=== PATIENT | female | born 1975 | race African-American/Black ===

== ENCOUNTER 2016-10-19 23:30 | Emergency (ER) | payer OTHER ==
[~2016-10-19 23:30] MED LIST: ACCU-CHEK D-TR1 CAR1; ACTOS PO; ACTOS15 MG PO; AMITRIPTYLINE H25 MG; AMOXICILLIN PO; APIDRA100 U/ML SQ; ASPIRIN81 M1 PO; ASPIRIN81 M2 PO; ATORVASTATIN CA10 MG PO; AUGMENTIN PO; BENADRYL PO; BENZONATATE PO; BLOOD PRESSURE MED; COREG; COREG3.125 MG PO; COUGH SYRU100 MG/5 M PO; DEPO-PROVE150 MG/1 M; DIABETES MED; DICLOFENAC PO; FERROUS SULFATE PO; FLEXERIL PO; FOLIC ACID; GLUCOPHAGE XR500 MG PO; GLUCOPHAGE500 M1 PO; GLUCOTROL PO; GLYNASE PO; HCTZ PO; HUMALOG100 U/M1; HUMALOG100 UNIT/2; HYDROCHLOROTHIA25 MG PO; HYDROCODON-ACE1 EAC5 PO; LANTUS100 U/ML SUBQ; LEVEMIR100 U/ML SQ; MAGIC MOUTHWASH; METFORMIN HCL1000 M1 PO; METFORMIN HCL500 M1; METFORMIN HCL500 M1 PO; MOUTHWASH180 ML; MULTI VITAMIN1 EACH; NEURONTIN800 MG PO; NORMODYNE PO; PHENERGAN DM1 ML PO; PREDNISONE PO; PREDNISONE50 MG PO; PRINIVIL10 MG PO; PROCARDIA10 MG PO; ROBAXIN 750750 MG PO; TOPROL XL PO; UNKNOWN ANTIBIOTIC; VASOTEC; VICODIN 5/500 T1 TAB PO; ZOFRANODT PO
[2016-10-19] MEDS ORDERED: GLUCOTROL XL (23:56)
[2016-10-19] MEDS ORDERED: LASIX PO (23:56)
[2016-10-19] MEDS ORDERED: ALDACTONE (23:56)
[2016-10-19] MEDS ORDERED: LEVOTHYROXINE100 MCG PO (23:57)
[2016-10-20 01:19] LABS: URINE SOURCE CLEAN CATCH
[2016-10-20 01:21] LABS: URINE APPEARANCE CLEAR; URINE BILIRUBIN NEG (NEG); URINE BLOOD 3+ (NEG); URINE COLOR YELLOW; URINE GLUCOSE 300 MG/DL (NORM); URINE KETONE NEG (NEG); URINE LEUKOCYTE ESTERASE NEG (NEG); URINE NITRATE NEG (NEG); URINE PROTEIN NEG (NEG)
[2016-10-20 01:25] LABS: BASOPHIL# 0.1 X10e3 (0-0.3); DIFF IND NO; EOSINOPHIL# 0.2 X10e3 (0-0.7); EOSINOPHIL% 2.2 % (0.0-7.0); HEMATOCRIT 37.5 % (35.0-45.0); HEMOGLOBIN 11.5 gm/dL (12.0-16.0); LYMPHOCYTE# 2.6 X10e3 (1.0-3.5); LYMPHOCYTE% 29.2 % (17.0-45.0); MEAN CELL VOLUME 74.3 FL (83-96); MEAN CORPUSCULAR HEMOGLOBIN 22.8 PG (28-34); MEAN CORPUSCULAR HGB CONC 30.7 g/dL (30-36); MEAN PLATELET VOLUME 9.8 FL (6.5-11.5); MONOCYTE# 0.8 X10e3 (0-1.0); MONOCYTE% 9.6 % (3.0-12.0); NEUTROPHIL# 5.1 X10e3 (1.5-7.1); PLATELET COUNT 256 X10e3 (140-420); RED BLOOD COUNT 5.05 X10e (3.90-5.30); RED CELL DISTRIBUTION WIDTH 18.3 % (11.0-15.5); WHITE BLOOD COUNT 8.8 X10e3 (4.0-10.5)
[2016-10-20 01:28] LABS: MICRO INDICATED? YES
[2016-10-20 01:31] LABS: CULTURE INDICATED? NO; URINE BACTERIA NEG (NEG); URINE RBC 100-200 /[HPF] (0-2)
[2016-10-20 01:32] LABS: URINE SQUAMOUS EPITHELIAL CELL OCCAS /[HPF]
[2016-10-20 01:39] LABS: CREATININE SERUM 0.7 mg/dL (0.6-1.4); GLOM FILT RATE Estimated 123.9 mL/min (>60); POTASSIUM 3.3 mmol/L (3.5-5.1)
[2016-10-21 20:38] LABS: CHLAMYDIA TRACH Not Detected (Not Detected); N GONOR Not Detected (Not Detected)
== END 2016-10-20 02:17 | disposition home or self-care (01) ==
LOC: SED 23:30
PROVIDERS: Emergency Medicine
DX: N76.0 Acute vaginitis (principal); E11.9 Type 2 diabetes mellitus without complications; I50.9 Heart failure, unspecified; I25.10 Atherosclerotic heart disease of native coronary artery without angina pectoris; Z79.82 Long term (current) use of aspirin; Z79.4 Long term (current) use of insulin; Z79.899 Other long term (current) drug therapy
CPT/HCPCS: 36415; 80048; 81003; 84703; 85025; 87491; 87591; 87808; 87905; 99284

== ENCOUNTER 2016-11-16 01:48 | Emergency (ER) | payer OTHER ==
--- NOTE | ~2016-11-16 | CR72 ---
[facility] A Service of [facility] & [facility] RADIOLOGY TEXT RESULTS PATIENT: BIANCA PAULINO LOCATION: SED : [birth year] UNIT #: [id number] AGE: [address]: Jayden Price MD SEX: F ORDER DR: [id number] [place] [id number] MR#: [id number] Acc #: [id number] NAME: BIANCA PAULINO : 1975 SEX: F STUDY DATE/TIME: 11/16/2016 2:53 UNIT: SED ROOM: STUDY DESCRIPTION: CR Chest Single View Portable Attending Physician: Jayden Price M.D. Ordering Physician: Jayden Price M.D. Primary Care Physician: Marcos Mcmahon M.D. MEDICAL IMAGING REPORT This report is preliminary unless electronic signature is present. EXAM AP portable chest 11/16/2016 HISTORY 41-year-old female in the ED complaining of cough, congestion, shortness of air and chest pain beginning earlier today. TECHNIQUE AP portable upright chest x-ray. FINDINGS Patchy, moderately dense airspace infiltrates are present in both lung bases, new since the prior exam. Mid and upper lungs are clear. Heart size and pulmonary vascularity are normal. IMPRESSION Moderately dense, patchy bibasilar pulmonary infiltrates. Dictated by... Arron Joseph M.D. THIS IS AN ELECTRONICALLY VERIFIED REPORT Arron oJseph M.D. at 11/16/2016 5:53 AM KAMERONW/michaelr TD: 11/16/2016 04:01 JOB #: [id number] MEDICAL IMAGING REPORT Page 1 of 1
--- NOTE | ~2016-11-16 | EKG ---
PATIENT: BIANCA PAULINO UNIT #: [id number] Ventricular Rate: 96 BPM Atrial Rate: 96 BPM P-R Interval: 214 ms QRS Duration: 106 ms Q-T Interval: 356 ms QTC Calculation(Bezet): 449 ms P [place]: 56 degrees Calculated R [place]: 29 degrees Calculated T [place]: 119 degrees Diagnosis Line: Sinus rhythm with 1st degree A-V block Diagnosis Line: Inferior infarct , possibly acute Diagnosis Line: Anterior infarct (cited on or before 10-FEB-2012) Diagnosis Line: T wave abnormality, consider lateral ischemia Diagnosis Line: * ACUTE NV Diagnosis Line: Abnormal ECG Diagnosis Line: When compared with ECG of 19-JUL-2015 07:34, Diagnosis Line: QRS duration has increased Diagnosis Line: Confirmed by FANG RICK MD ([id number]) on 11/20/2016 Diagnosis Line: 11:57:12 AM INTERPRETING MD: MERLINE FITZPATRICK
[~2016-11-16 01:48] MED LIST changes: +ALDACTONE; +GLUCOTROL XL; +LASIX PO; +LEVOTHYROXINE100 MCG PO
[2016-11-16] MEDS ORDERED: PERCOCET PO (01:51)
[2016-11-16 02:21] LABS: BASOPHIL# 0.1 X10e3 (0-0.3); BASOPHIL% 0.6 % (0-2.5); EOSINOPHIL# 0.3 X10e3 (0-0.7); EOSINOPHIL% 2.6 % (0.0-7.0); HEMATOCRIT 35.6 % (35.0-45.0); HEMOGLOBIN 11.1 gm/dL (12.0-16.0); LYMPHOCYTE# 2.1 X10e3 (1.0-3.5); LYMPHOCYTE% 21.4 % (17.0-45.0); MEAN CELL VOLUME 75.5 FL (83-96); MEAN CORPUSCULAR HEMOGLOBIN 23.5 PG (28-34); MEAN CORPUSCULAR HGB CONC 31.2 g/dL (30-36); MEAN PLATELET VOLUME 9.6 FL (6.5-11.5); MONOCYTE# 0.8 X10e3 (0-1.0); MONOCYTE% 8.5 % (3.0-12.0); NEUTROPHIL# 6.6 X10e3 (1.5-7.1); NEUTROPHIL% 66.9 % (40-75); PLATELET COUNT 257 X10e3 (140-420); RED BLOOD COUNT 4.72 X10e (3.90-5.30); RED CELL DISTRIBUTION WIDTH 19.2 % (11.0-15.5); WHITE BLOOD COUNT 9.9 X10e3 (4.0-10.5)
[2016-11-16 02:26] LABS: DIFF IND NO
[2016-11-16 02:34] LABS: POC - CKMB 1.7 ng/mL (0.0-7.9); POC - TROPONIN 0.05 ng/mL (<=0.05)
[2016-11-16 02:35] LABS: ALBUMIN SERUM 2.9 g/dL (3.5-5.0); BILIRUBIN,TOTAL 0.3 mg/dL (0.2-2.0); BUN/CREATININE RATIO 14.44; CALCIUM SERUM 8.8 mg/dL (8.4-10.2); CREATININE SERUM 0.9 mg/dL (0.6-1.4); GLOM FILT RATE Estimated 91.5 mL/min (>60); POTASSIUM 3.9 mmol/L (3.5-5.1); PROTEIN TOTAL SERUM 5.9 g/dL (6.0-8.3)
[2016-11-16 04:12] LABS: POC - CKMB 1.4 ng/mL (0.0-7.9)
[2016-11-16 04:13] LABS: POC - TROPONIN <0.05 ng/mL (<=0.05)
== END 2016-11-16 04:56 | disposition home or self-care (01) ==
LOC: SED 01:48
PROVIDERS: Emergency Medicine
DX: J18.9 Pneumonia, unspecified organism (principal); Z79.82 Long term (current) use of aspirin; Z79.4 Long term (current) use of insulin; Z79.899 Other long term (current) drug therapy
CPT/HCPCS: 36415; 71010; 80053; 82553; 82947; 83880; 84484; 85025; 93005; 96361; 96374; 99284

== ENCOUNTER 2016-11-25 18:34 | Inpatient (IN) | payer OTHER ==
--- NOTE | ~2016-11-25 | EKG ---
PATIENT: BIANCA PAULINO UNIT #: [id number] Ventricular Rate: 104 BPM Atrial Rate: 104 BPM P-R Interval: 202 ms QRS Duration: 92 ms Q-T Interval: 326 ms QTC Calculation(Bezet): 428 ms P [place]: 50 degrees Calculated R [place]: 9 degrees Calculated T [place]: 100 degrees Diagnosis Line: Sinus tachycardia Diagnosis Line: Inferior infarct (cited on or before 21-APR-2015) Diagnosis Line: T wave abnormality, consider lateral ischemia Diagnosis Line: Abnormal ECG Diagnosis Line: When compared with ECG of 28-NOV-2016 07:01, Diagnosis Line: (unconfirmed) Diagnosis Line: Questionable change in initial forces of Anterior Diagnosis Line: leads Diagnosis Line: Confirmed by FANG RICK MD ([id number]) on 11/30/2016 Diagnosis Line: 4:10:41 PM INTERPRETING MD: MERLINE FITZPATRICK
--- NOTE | ~2016-11-25 | EKG ---
PATIENT: TOMAS PAULINO UNIT #: [id number] Ventricular Rate: 106 BPM Atrial Rate: 106 BPM P-R Interval: 220 ms QRS Duration: 76 ms Q-T Interval: 320 ms QTC Calculation(Bezet): 425 ms P [place]: 70 degrees Calculated R [place]: 30 degrees Calculated T [place]: 103 degrees Diagnosis Line: Sinus tachycardia with 1st degree A-V block Diagnosis Line: Inferior infarct (cited on or before 21-APR-2015) Diagnosis Line: T wave abnormality, consider lateral ischemia Diagnosis Line: Abnormal ECG Diagnosis Line: When compared with ECG of 03-DEC-2016 05:40, Diagnosis Line: No significant change was found Diagnosis Line: Confirmed by LUCY CHAPMAN MD ([id number]) on Diagnosis Line: 12/05/2016 9:52:49 PM INTERPRETING MD: YVON
--- NOTE | ~2016-11-25 | CO ---
Unit #: [id number] #: [id number] Patient: BIANCA PAULINO [id number] [address] [place], [place] [address] [id number] I MR#: [id number] NAME: BIANCA PAULINO ROOM: 562 Age: 41 Sex: F Admission Date: 11/26/2016 : 1975 Attending Physician: Jackeline Reilly M.D. Primary Care Physician: Marcos Mcmahon M.D. Consultation Date: 11/27/2016 CONSULTATION REPORT REASON FOR CONSULTATION Elevated triglycerides and history of coronary artery disease. HISTORY OF PRESENT ILLNESS This is a pleasant 41-year-old female with a past medical history of coronary artery disease, status post PCI and stents in 2015 at [facility] per Dr. Gonzales. Apparently, the patient was evaluated by Surgery and was deemed not to be a surgical candidate. The patient also one point had severe cardiomyopathy with an EF of 15% and tells me she was on the transplant list at one time, but has since been removed since her ejection fraction has improved. She also [facility] and states her next appointment is the end of November. The patient states last week she went to the hospital at [facility] because she was not feeling well. She had been complaining of shortness of breath and cough as well as some chest pain for about a week. She states she was evaluated at [facility] and diagnosed with pneumonia. They sent her out with doxycycline. She states she took this antibiotic for approximately 7 days and still was not feeling much better. She states she stayed home a couple of days to try to ride it out, but things did not improve. Finally came into the emergency room, still with complaints of shortness of breath and dyspnea on exertion as well as some substernal chest pressure, lower extremity swelling, and reports of PND. The patient was diagnosed here with acute respiratory failure and pneumonia. Her BNP was noted to be normal. She was started on Rocephin and Zithromax and was admitted. She denies any complaints of palpitations, syncope, or near syncope. EKG shows normal sinus rhythm, old inferior SD, T-wave inversion V4 through V6 which suggestive of lateral wall ischemia. Point of care troponins have been indeterminate. PAST MEDICAL HISTORY 1. Hypertension. Known coronary artery disease, status post cardiac catheterization in 06/2015, which at that time showed severe coronary artery disease. Severe hypokinesis of the left ventricle, EF of 15%. 2. Proximal with LAD descending 99% stenosis, significant stenosis of the first and second diagonal branches of the LAD. 3. Subtotal stenosis of proximal circ 90%, mid circ 90% stenosis origin of the first marginal branch of the circ and 90% stenosis body of the second marginal branch of the circumflex. 4. Stenosis 100% of the mid right coronary artery. The patient was evaluated by Surgical team and was deemed not a candidate for bypass grafting. Therefore, underwent stent placement per Dr. Gonzales in 02/2016 at [facility]. Those records are currently unavailable. 5. 2D echocardiogram performed in 02/2016 showed an LVEF of 60% to 65%. 6. Diabetes mellitus type 2 with poor control. Unit #: [id number] #: [id number] Patient: BIANCA PAULINO 7. Hypertension. 8. Hyperlipidemia. 9. Clotting disorder. 10. Hypothyroidism. 11. Elevated triglycerides. 12. History of systolic CHF, EF is much improved now. PAST SURGICAL HISTORY History of , PCI with stents. HOME MEDICATIONS Aspirin 81 mg p.o. daily, Prinivil 10 mg p.o. daily, Neurontin 800 mg p.o. q.i.d., carvedilol 3.125 p.o. daily, Plavix 75 mg p.o. daily, Synthroid 25 mcg p.o. q.a.m., Lasix 40 mg p.o. b.i.d., nitroglycerin sublingual 0.4 sublingual as needed p.r.n. pain., Glucotrol 5 mg p.o. b.i.d., BuSpar 15 mg p.o. b.i.d., Percocet 1 tab 5/325 p.o. q.i.d. p.r.n., Aldactone 25 mg p.o. daily. ALLERGIES No known drug allergies. SOCIAL HISTORY The patient lives with her kids. She states she has not been released to work yet. She is a nonsmoker. Denies any illicit drugs or alcohol. FAMILY HISTORY Aunt with an SD, otherwise unremarkable. She did have a baby, who in utero with hypoplastic heart disease. PHYSICAL EXAMINATION VITAL SIGNS: Temperature 98, respiratory rate 18 to 20, heart rate 90 to 110s, blood pressure 104/72 to 123/83, also with some borderline low blood pressure is 95/50s. GENERAL: This is a pleasant 41-year-old female, in no acute distress. HEENT: Head is atraumatic and normocephalic. Pupils are equal and round. Extraocular muscles are intact. Mucous membranes are moist. NECK: Supple. No masses. No thyromegaly. No JVD. LUNGS: Clear anteriorly, diminished in the bases. HEART: S1 and S2. No murmurs, gallops, or rubs. ABDOMEN: Obese, soft, nontender, nondistended. No hepatomegaly. No masses. EXTREMITIES: No clubbing, cyanosis, or edema. NEUROLOGIC: She is awake, alert, and oriented. She moves all extremities equally. She follows commands without difficulty. DIAGNOSTIC STUDIES LABORATORY RESULTS: Sodium 136, potassium 4.1, chloride 101, CO2 of 26, BUN 12, creatinine 0.6, glucose is 201. Troponin 0.06 and 0.05. Hemoglobin 11.4, hematocrit 37.1, WBCs 10.3, platelet count 298. BNP was 58. Total cholesterol 222, triglycerides 790, LDL less than 130, HDL 27. D-dimer was less than 200. IMAGING STUDIES: Interval increase in the bibasilar infiltrates compared with 11/16/2016, characteristic of worsening bilateral pneumonia. CARDIOVASCULAR STUDIES: EKG; normal sinus rhythm, old inferior SD. T-wave inversion in V4 through V6 suggestive of lateral wall ischemia. Unit #: [id number] #: [id number] Patient: BIANCA PAULINO IMPRESSION 1. Acute respiratory failure. 2. Bibasilar pneumonia. 3. Ischemic cardiac cardiomyopathy. 4. Compensated congestive heart failure, ejection fraction now of 45% to 50%. 5. Angina pectoralis. 6. Dyslipidemia with elevated triglycerides of 790. 7. Known coronary artery disease with severe 3-vessel disease, deemed not a surgical candidate. History of stents per Dr. Gonzales in 2016 at [facility]. That report is currently unavailable. 8. Hypertension. 9. Hyperlipidemia. 10. Poorly-controlled diabetes mellitus with A1c of 13.8. PLAN The patient does have borderline hypotension and is on beta-rios therapy. Since there was a discrepancy in her EF, we will repeat 2D echocardiogram to assess LV systolic function. We will also decrease some of her heart failure medications and assess blood pressure tolerance. We will be decreasing her Prinivil to 2.5 mg p.o. daily and decreasing her Aldactone to 12.5 mg p.o. daily. She will also have a BMP and troponin tomorrow in the morning. She should continue to get her beta-rios as long as her systolic blood pressure is at least 90. Due the fact the patient does have extremely elevated triglycerides, we will place her on Lopid p.o. b.i.d. We will check a PA and lateral chest x-ray. I have discussed her EKG findings with Dr. Presley and he will evaluate her later today. If the patient continues to have symptoms of chest discomfort, she may need a repeat cardiac catheterization later. We will continue to trend cardiac enzymes and assess and monitor her chest pain. It is also important that the patient get her blood sugars under control. It appears Endocrinology has also been consulted to see as the patient has an extremely elevated hemoglobin A1c of 13.8. It was discussed with the patient the importance of lifestyle modification including diet, exercise, and weight loss as well as avoiding sugars and white carbohydrates. She has extremely increased risk for pancreatitis. Thank you for asking us to see this pleasant patient. We will continue to follow along with you. Dictated by... Ac Purcell/quentin TD: 11/29/2016 05:48 JOB #: [id number] Unit #: [id number] #: [id number] Patient: BIANCA PAULINO CONSULTATION REPORT Page 1 of 1 X Leigh Andrew APRN CONSULTATION REPORT
--- NOTE | ~2016-11-25 | CO ---
Unit #: [id number] #: [id number] Patient: BIANCA PAULINO [id number] [address] [address] [id number] I MR#: [id number] NAME: BIANCA PAULINO. ROOM: 562 Age: 41 Sex: F Admission Date: 11/26/2016 : 1975 Attending Physician: Jackeline Reilly M.D. Primary Care Physician: Marcos Mcmahon M.D. Consultation Date: 11/27/2016 CONSULTATION REPORT REASON FOR CONSULTATION Shortness of breath. HISTORY OF PRESENT ILLNESS This is a very pleasant 41-year-old female with a past medical history significant for severe coronary artery disease, complicated with cardiomyopathy. The patient presented to the emergency room with shortness of breath for the last 10 days. The patient stated that she went to the [facility] emergency room on 11/16/2016, where she had a chest x-ray and was told that she had pneumonia. She was placed on doxycycline with no improvement. The patient continued to feel short of breath and she had some chills. She denied any overt fever. No nausea, vomiting or diarrhea. She lives at home with her . She never smoked, but she has a well-known severe congestive heart failure and she is supposedly following with the congestive heart failure clinic. PAST MEDICAL HISTORY 1. Hypertension. 2. Coronary artery disease. 3. Cardiomyopathy. 4. Diabetes. PAST SURGICAL HISTORY 1. PPI. 2. . SOCIAL HISTORY The patient denies any history of alcohol, smoking or drug abuse. FAMILY HISTORY Unremarkable. ALLERGIES No known drug allergies. HOME MEDICATIONS 1. Aspirin. 2. Plavix. 3. Lisinopril. 4. Neurontin. 5. Coreg. 6. Synthroid. Unit #: [id number] #: [id number] Patient: BIANCA PAULINO 7. Lasix. 8. Glucotrol. 9. BuSpar. 10. Percocet. 11. Aldactone. REVIEW OF SYSTEMS Twelve point review of systems was obtained and was negative except for that mentioned in history of present illness. PHYSICAL EXAMINATION GENERAL: The patient is in no acute distress. VITALS: Blood pressure 94/62, respiratory rate 23, O2 saturations 93%. HEENT: Atraumatic, normocephalic. Extraocular muscles intact. NECK: Supple. No jugular venous distension. No lymphadenopathy. CHEST: Mild fine rhonchi at the bases. HEART: S1 and S2. No murmur, gallop or rub. ABDOMEN: Soft, nontender. Bowel sounds positive. No hepatosplenomegaly. EXTREMITIES: No edema or cyanosis. SKIN: No rashes. NEUROLOGIC: Awake, alert and oriented times three. No focal motor/sensory deficits. SKIN: No rashes. DIAGNOSTIC STUDIES IMAGING: Chest x-ray is consistent with bilateral lower lobe infiltrate. LABORATORY: Creatinine 0.6, sodium 136, white blood cell count 12.6, hemoglobin 12.3. ASSESSMENT 1. Acute hypoxic respiratory failure. 2. Community acquired pneumonia. 3. Severe cardiomyopathy. 4. Hypertension. 5. Coronary artery disease. PLAN 1. Will obtain lactic acid due to low blood pressure. 2. Will continue the patient on mucolytic, bronchodilator. 3. Rocephin and azithromycin. 4. Will follow blood culture. 5. DVT prophylaxis. I would like to thank Dr. Price for allowing me to be part of this patient's care. Dictated by... Marcy David M.D. EA/sangeetha TD: 11/27/2016 11:00 JOB #: [id number] Unit #: [id number] #: [id number] Patient: BIANCA PAULINO CONSULTATION REPORT Page 1 of 1 X MARCY NEW MD CONSULTATION REPORT
--- NOTE | ~2016-11-25 | EKG ---
PATIENT: TOMAS PAULINO UNIT #: [id number] Ventricular Rate: 98 BPM Atrial Rate: 98 BPM P-R Interval: 220 ms QRS Duration: 92 ms Q-T Interval: 352 ms QTC Calculation(Bezet): 449 ms P [place]: 63 degrees Calculated R [place]: -5 degrees Calculated T [place]: 103 degrees Diagnosis Line: Sinus rhythm with 1st degree A-V block Diagnosis Line: Inferior infarct (cited on or before 21-APR-2015) Diagnosis Line: Anterior infarct (cited on or before 10-FEB-2012) Diagnosis Line: T wave abnormality, consider lateral ischemia Diagnosis Line: Abnormal ECG Diagnosis Line: When compared with ECG of 02-DEC-2016 09:37, Diagnosis Line: (unconfirmed) Diagnosis Line: No significant change was found Diagnosis Line: Confirmed by DORINA SINGLETON MD ([id number]) on 12/02/2016 Diagnosis Line: 10:47:30 PM INTERPRETING MD: MANI FITZPATRICK
--- NOTE | ~2016-11-25 | EKG ---
PATIENT: BIANCA PAULINO UNIT #: [id number] Ventricular Rate: 106 BPM Atrial Rate: 106 BPM P-R Interval: 210 ms QRS Duration: 86 ms Q-T Interval: 328 ms QTC Calculation(Bezet): 435 ms P [place]: 73 degrees Calculated R [place]: 44 degrees Calculated T [place]: 109 degrees Diagnosis Line: Sinus tachycardia with 1st degree A-V block Diagnosis Line: Cannot rule out Inferior infarct (cited on or Diagnosis Line: before 21-APR-2015) Diagnosis Line: ST and T wave abnormality, consider lateral ischemia Diagnosis Line: Abnormal ECG Diagnosis Line: When compared with ECG of 30-NOV-2016 00:58, Diagnosis Line: No significant change was found Diagnosis Line: Confirmed by LUCY CHAPMAN MD ([id number]) on Diagnosis Line: 12/01/2016 11:28:36 PM INTERPRETING MD: YVON
--- NOTE | ~2016-11-25 | HP ---
Unit #: [id number] #: [id number] Patient: BIANCA TERRELL [id number] [facility] [address]. [place], [place] [address] [id number] I MR#: [id number] NAME: BIANCA TERRELL. ROOM: 562 Age: 41 Sex: F Admission Date: 11/26/2016 : 1975 Attending Physician: Jackeline Reilly M.D. Primary Care Physician: Marcos Mcmahon M.D. HISTORY AND PHYSICAL ADMISSION DIAGNOSES 1. Acute hypoxemic respiratory failure. 2. Pneumonia. 3. Elevated troponin. 4. Diabetes. HISTORY OF PRESENT ILLNESS Ms. Terrell is a 41-year-old female, patient of Dr. Mcmahon, with the history of severe coronary artery disease, status post PCI and stent from last year by Dr. Gonzales, along with the severe cardiomyopathy, presents to the emergency room with the complaints of increasing shortness of air, dyspnea along with some chills. Patient also reported some dizziness, nausea. Patient tells me she has been seen at the outlying ER last week with similar presentation and was diagnosed with "pneumonia" and was given some doxycycline for 7 days. Since then, patient reports her shortness of air getting worse and decided to come to the [facility] ER. In the ER, chest x-ray showed some bibasilar infiltrates and patient was diagnosed with pneumonia and started on Rocephin and Zithromax and admitted. She complains of on and off chest discomfort but currently chest pain-free. Denies any fever. Complains of chills. Denies any headache, but states that she gets dizzy if she stands for a long time. Denies any productive cough, denies any vomiting, diarrhea, or abdominal pain. Denies any syncopal episode. REVIEW OF SYSTEMS Twelve-point review of systems on this patient is basically negative except as above. PAST MEDICAL HISTORY Significant for: 1. History of hypertension. 2. CAD. 3. Cardiomyopathy. 4. Diabetes. PAST SURGICAL HISTORY Significant for: 1. PCI with stent. 2. . HOME MEDICATIONS Include: 1. Aspirin. 2. Plavix. Unit #: [id number] #: [id number] Patient: BIANCA TERRELL 3. Lisinopril. 4. Neurontin. 5. Coreg. 6. Synthroid. 7. Lasix. 8. Nitrostat. 9. Glucotrol. 10. BuSpar. 11. Percocet. 12. Aldactone. ALLERGIES No known drug allergies. SOCIAL HISTORY Denies any tobacco, alcohol, or illicit drugs. FAMILY HISTORY Unremarkable. PHYSICAL EXAMINATION VITAL SIGNS: BP 121/83, heart rate 102, respirations 18, temperature 98. GENERAL: The patient is a 41-year-old female in no acute distress. HEENT: Head is atraumatic. Pupils equal, round, reactive to light and accommodation. Extraocular muscles are intact. Oropharynx is clear. NECK: Supple. No mass, no JVD, no bruits. LUNGS: Diminished bilaterally. HEART: S1, S2. No murmurs. ABDOMEN: Soft, nontender, nondistended. LOWER EXTREMITIES: Without any cyanosis, clubbing, or edema. NEUROLOGIC: Patient grossly intact, no focal deficits. DIAGNOSTIC STUDIES LABORATORY: Chemistry significant for sodium of 131 and blood glucose 344. Set of cardiac enzymes showed the troponin of 0.09. White count 12.6, hemoglobin 12.3, hematocrit 39.2. IMAGING: Chest x-ray as above with bibasilar infiltrates. ASSESSMENT AND PLAN 1. Acute hypoxemic respiratory failure, most likely multifactorial secondary to pneumonia and cardiomyopathy. Continue DuoNeb. Pulmonary and cardiology to see. 2. Pneumonia. Continue Zithromax and Rocephin. 3. Elevated troponin. Trend troponin. Get Dr. Presley on board. 4. Diabetes. Was started on Levemir. Will check the hemoglobin A1c. Consider endocrinology evaluation. 5. GI and DVT prophylaxis. Continue Lovenox. Will put on some Pepcid. Dictated by Braden Price M.D. Unit #: [id number] #: [id number] Patient: BIANCA TERRELL OC/cs TD: 11/26/2016 20:26 JOB #: [id number] HISTORY AND PHYSICAL Page 1 of 1 X Braden Price MD HISTORY AND PHYSICAL
--- NOTE | ~2016-11-25 | CR63 ---
[facility] A Service of [facility] & [facility] RADIOLOGY TEXT RESULTS PATIENT: PAKO PILLAI LOCATION: [facility] 555-01 : [birth year] UNIT #: [id number] AGE: [address]: Jackeline Reilly MD SEX: F ORDER DR: [id number] [facility] [address] [place], [place] [address] [id number] I MR#: [id number] Acc #: [id number] NAME: PAKO PILLAI : 1975 SEX: F STUDY DATE/TIME: 12/07/2016 8:34 UNIT: [facility] ROOM: [facility] STUDY DESCRIPTION: CR Chest 2 View Attending Physician: Jackeline Reilly M.D. Ordering Physician: Jackeline Reilly M.D. Primary Care Physician: Marcos Mcmahon M.D. MEDICAL IMAGING REPORT This report is preliminary unless electronic signature is present EXAM PA and lateral chest INDICATION Followup pneumonia. Comparison with 11/28/2016 FINDINGS Overall no significant change in the bilateral lower lobe infiltrates. Heart size stable. Visualized osseous structures are unremarkable. IMPRESSION Stable bilateral lower lobe infiltrates. Dictated by... Franco Rdz M.D. THIS IS AN ELECTRONICALLY VERIFIED REPORT Franco Rdz M.D. at 12/08/2016 2:19 PM VERO/radha TD: 12/07/2016 22:49 JOB #: [id number] MEDICAL IMAGING REPORT Page 1 of 1 COPY
--- NOTE | ~2016-11-25 | CO ---
Unit #: [id number] #: [id number] Patient: BIANCA PAULINO [id number] [address] [address] [id number] I MR#: [id number] NAME: BIANCA PAULINO. ROOM: 562 Age: 41 Sex: F Admission Date: 11/26/2016 : 1975 Attending Physician: Jackeline Reilly M.D. Primary Care Physician: Marcos Mcmahon M.D. Consultation Date: 11/27/2016 CONSULTATION REPORT REASON FOR CONSULTATION Management of diabetes mellitus. HISTORY OF PRESENT ILLNESS This is a 43-year-old white female with history of multiple medical problems including type 2 diabetes mellitus and coronary artery disease, who presented to the emergency room for increasing shortness of breath for the last 10 days. She went to the emergency room on 11/16/2016, was treated outpatient with antibiotics with no improvement. She came to the hospital with worsening of shortness of air. Her blood sugar has been very high. I have been asked to see the patient for further management. PAST MEDICAL HISTORY Type 2 diabetes mellitus, poorly controlled; coronary artery disease; cardiomyopathy; congestive heart failure; hypertension. PAST SURGICAL HISTORY . SOCIAL HISTORY Denies any history of alcohol, smoking, or any illicit drugs. FAMILY HISTORY Noncontributory. ALLERGIES None. HOME MEDICATIONS Glucotrol 5 mg daily, Lantus 40 units daily, NovoLog 18 units each meal, aspirin daily, Plavix daily, lisinopril, Neurontin, Coreg, Lasix, Aldactone, Percocet. REVIEW OF SYSTEMS 12-point review of system was completed. Negative except as noted in HPI. PHYSICAL EXAMINATION GENERAL: She is comfortable, no acute respiratory distress. She is awake, alert, oriented to time, place, and person. VITAL SIGNS: Temperature 97.9, pulse 89, respirations 18, blood pressure 100/63. HEENT: EOMI. Pupils equally reactive to light. NECK: Supple. No thyromegaly noted. Unit #: [id number] #: [id number] Patient: BIANCA PAULINO CHEST: Decreased air entry with some rhonchi. CVS: Regular rhythm. S1, S2. ABDOMEN: Soft and obese. Bowel sounds positive. No tenderness, no guarding or rigidity noted. EXTREMITIES: No ulcers noted. No amputations. NEUROLOGIC: Nonfocal. Moving all extremities. SKIN: No rash. DIAGNOSTIC STUDIES LABORATORY RESULTS: Reviewed. A1c is 13.8. BUN and creatinine are normal. ASSESSMENT 1. Type 2 diabetes mellitus, poorly controlled due to poor compliance. 2. Cardiomyopathy with congestive heart failure. 3. Pneumonia. PLAN We will discuss with her, start the patient on consistent carb diet. Change Levemir to 30 units subcu b.i.d. or Glucotrol. Add NovoLog 15 units each meal. Accu-Cheks a.c. and h.s. Continue IV antibiotics. Continue to follow the patient for further management. Dictated by... Joseph Bazzi/quentin TD: 11/29/2016 05:12 JOB #: [id number] CONSULTATION REPORT Page 1 of 1 X Basil Jerry MD X CONSULTATION REPORT
--- NOTE | ~2016-11-25 | EKG ---
PATIENT: TOMAS PAULINO UNIT #: [id number] Ventricular Rate: 99 BPM Atrial Rate: 99 BPM P-R Interval: 226 ms QRS Duration: 80 ms Q-T Interval: 354 ms QTC Calculation(Bezet): 454 ms P [place]: 58 degrees Calculated R [place]: -2 degrees Calculated T [place]: 98 degrees Diagnosis Line: Sinus rhythm with 1st degree A-V block Diagnosis Line: Inferior infarct (cited on or before 21-APR-2015) Diagnosis Line: Anterior infarct (cited on or before 10-FEB-2012) Diagnosis Line: T wave abnormality, consider lateral ischemia Diagnosis Line: Abnormal ECG Diagnosis Line: When compared with ECG of 02-DEC-2016 13:04, Diagnosis Line: T wave inversion more evident in Lateral leads Diagnosis Line: Confirmed by DORINA SINGLETON MD ([id number]) on 12/04/2016 Diagnosis Line: 11:10:01 PM INTERPRETING MD: MANI FITZPATRICK
--- NOTE | ~2016-11-25 | CT57 ---
[facility] A Service of [facility] RADIOLOGY TEXT RESULTS PATIENT: TOMAS PAULINO LOCATION: [facility] : [birth year] UNIT #: [id number] AGE: [address]: Jackeline Reilly MD SEX: F ORDER DR: [id number] [facility] [address]. [place], [place] [address] [id number] I MR#: [id number] Acc #: [id number] NAME: TOMAS PAULINO : 1975 SEX: F STUDY DATE/TIME: 12/02/2016 8:41 UNIT: B ROOM: 2 STUDY DESCRIPTION: CT Chest Wo Cont Attending Physician: Jackeline Reilly M.D. Ordering Physician: Mono Chaudhary M.D. Primary Care Physician: Marcos Mcmahon M.D. MEDICAL IMAGING REPORT This report is preliminary unless electronic signature is present EXAM Chest CT, 12/02 INDICATION Pneumonia. Shortness of air. Dyspnea. Symptoms since October 2016. History of coronary artery disease. TECHNIQUE Axial images were obtained through the chest without contrast. Multiplanar reformats were obtained. This CT exam was performed with one or more of the following radiation dose reduction techniques: automatic exposure control, adjustment of mA and/or kV according to patient size, and iterative reconstruction. COMPARISON 07/17/2015 FINDINGS There is no pleural or pericardial effusion. There is coronary artery disease. There is no adenopathy. There are patchy bilateral infiltrates with a basilar predominance. These presumably reflect diffuse multifocal pneumonia. Continuation through the upper abdomen shows increased density in the renal pyramids suggesting potential medullary sponge kidney. IMPRESSION 1. Patchy multifocal bilateral pneumonia with a basilar predominance. 2. Coronary artery disease. Dictated by... Al Huddleston Jr., M.D. [facility] A Service of [facility] RADIOLOGY TEXT RESULTS PATIENT: TOMAS PAULINO LOCATION: [facility] : [birth year] UNIT #: [id number] AGE: [address]: Jackeline Reilly MD SEX: F ORDER DR: THIS IS AN ELECTRONICALLY VERIFIED REPORT Al Huddleston Jr., M.D. at 12/02/2016 4:47 PM SUZANNE/xu TD: 12/02/2016 10:00 JOB #: [id number] MEDICAL IMAGING REPORT Page 1 of 1 COPY
--- NOTE | ~2016-11-25 | EKG ---
PATIENT: TOMAS PAULINO UNIT #: [id number] Ventricular Rate: 101 BPM Atrial Rate: 101 BPM P-R Interval: 214 ms QRS Duration: 82 ms Q-T Interval: 326 ms QTC Calculation(Bezet): 422 ms P [place]: 48 degrees Calculated R [place]: 17 degrees Calculated T [place]: 101 degrees Diagnosis Line: Sinus tachycardia with 1st degree A-V block Diagnosis Line: Inferior infarct (cited on or before 21-APR-2015) Diagnosis Line: Anterior infarct , age undetermined Diagnosis Line: T wave abnormality, consider lateral ischemia Diagnosis Line: Abnormal ECG Diagnosis Line: When compared with ECG of 01-DEC-2016 05:47, Diagnosis Line: Anterior infarct is now Present Diagnosis Line: Nonspecific T wave abnormality, improved in Diagnosis Line: Anterior leads Diagnosis Line: Confirmed by FANG RICK MD ([id number]) on 12/03/2016 Diagnosis Line: 9:59:59 AM INTERPRETING MD: MERLINE FITZPATRICK
--- NOTE | ~2016-11-25 | CR63 ---
[facility] A Service of [facility] RADIOLOGY TEXT RESULTS PATIENT: BIANCA PAULINO LOCATION: [place] [address] : [birth year] UNIT #: [id number] AGE: [address]: Jackeline Reilly MD SEX: F ORDER DR: [id number] [place] [id number] I MR#: [id number] Acc #: [id number] NAME: BIANCA PAULINO. : 1975 SEX: F STUDY DATE/TIME: 11/25/2016 19:11 UNIT: SEDOF ROOM: [facility] STUDY DESCRIPTION: CR Chest 2 View Attending Physician: Jackeline Reilly M.D. Ordering Physician: Иван Mott M.D. Primary Care Physician: Marcos Mcmahon M.D. MEDICAL IMAGING REPORT This report is preliminary unless electronic signature is present. EXAM Chest, PA and lateral. DATE OF EXAM 11/25/2016 HISTORY Shortness of breath and cough since 11/16/2016. Bilateral pneumonia. Chest congestion. Smoking history. Benign essential hypertension. FINDINGS The cardiac and mediastinal structures are stable compared with 11/16/2016. There has been an interval increase in the bibasilar infiltrates. The lung apices are clear. There are no pleural effusions. IMPRESSION Interval increase in the bibasilar infiltrates compared with 11/16/2016, characteristic of worsening bilateral pneumonia. Dictated by... Segun John M.D. THIS IS AN ELECTRONICALLY VERIFIED REPORT Segun John M.D. at 11/26/2016 2:14 PM KRT/jeramy TD: 11/25/2016 22:05 JOB #: [id number] [facility] A Service [facility] RADIOLOGY TEXT RESULTS PATIENT: BIANCA PAULINO [facility] : [birth year] UNIT #: [id number] AGE: [address]: Jackeline Reilly MD SEX: F ORDER DR: MEDICAL IMAGING REPORT Page 1 of 1
--- NOTE | ~2016-11-25 | DS ---
Unit #: [id number] #: [id number] Patient: PAKO PILLAI [id number] [address] [address] [id number] I MR#: [id number] NAME: PAKO PILLAI ROOM: 555 Age: 41 Sex: F Admission Date: 11/26/2016 : 1975 Discharge Date: 12/08/2016 Attending Physician: Jackeline Reilly M.D. Primary Care Physician: Marcos Mcmahon M.D. DISCHARGE SUMMARY DISCHARGE DIAGNOSES 1. Coronary artery disease status post percutaneous coronary intervention with stent per cardiology. 2. Acute exacerbation of cardiomyopathy. 3. Pneumonia. 4. Diabetes. 5. Dyslipidemia. 6. Chronic O2-dependent respiratory failure. DISCHARGE MEDICATIONS 1. Neurontin 800 mg t.i.d. 2. Lipitor 80 mg at bedtime. 3. Lopid 600 mg p.o. b.i.d. 4. BuSpar 15 mg b.i.d. 5. Coreg 3.125 mg b.i.d. 6. Omnicef 300 mg b.i.d. 7. Lasix 40 mg b.i.d. 8. Levemir 40 units subcu b.i.d. 9. NovoLog 15 units subcu t.i.d. with meals. 10. Aspirin 81 mg daily. 11. Percocet 325 p.o. q.i.d. p.r.n. pain. 12. Effient 10 mg at bedtime. 13. Spironolactone 12.5 mg p.o. daily. 14. Synthroid 25 mcg daily. 15. Imdur 30 mg daily. 16. Nitrostat p.r.n. NOTE: Please note that the patient was taken off of the BENNIE inhibitor secondary to hypotension. DISPOSITION Going home with home health with home O2. FOLLOWUP 1. Outpatient followup with cardiology. 2. Outpatient followup with pulmonary. 3. Followup with primary care physician in 2-3 days. CONSULTS ON THIS HOSPITAL STAY 1. Dr. Presley of cardiology. 2. Dr. Chaudhary, pulmonary. 3. Dr. Jerry, endocrinology. PROCEDURES Unit #: [id number] #: [id number] Patient: PAKO PILLAI 1. Cardiac cath per Dr. Presley with PCI with stents to left circumflex coronary artery, unsuccessful RCA with 100% in-stent stenosis. 2. Bronchoscopy per Dr. Chaudhary. DIAGNOSTIC STUDIES IMAGING: Chest x-ray on admission - Interval increase in bibasilar infiltrates. CT chest without contrast - Patchy multifocal bilateral pneumonia with basilar predominance. Last chest x-ray from December 07 - Stable bilateral lower lobe infiltrates. CARDIOVASCULAR: Two-D echo showed LV function of 45% to 50%. Moderate apical hypokinesis. LABORATORY: Blood culture negative. Bronchoalveolar culture shows 2+ normal respiratory sara, occasional gram-positive rods, occasional yeast, occasional gram-positive pairs and clusters. HISTORY OF PRESENT HOSPITAL STAY Please refer to H and P done by me for initial presentation on this female. ACTIVE PROBLEMS AND DIAGNOSES ON THIS HOSPITAL STAY Acute on chronic respiratory failure. Status post evaluation per cardiology. Status post evaluation per pulmonary. Etiology multifactorial, including cardiomyopathy, coronary artery disease and COPD. Currently stable per pulmonary to be discharged with home O2. Coronary artery disease status post PCI, as above. Continue Effient. Continue aspirin. Continue Imdur, beta-rios, statin and Lopid. Outpatient followup with cardiology. Acute exacerbation of cardiomyopathy, as above. Continue Lasix. Continue Aldactone. Off of BENNIE inhibitor secondary to relative hypotension. Pneumonia status post bronchoscopy. Was treated with IV antibiotics. Currently okay to go home with Omnicef per pulmonary. Diabetes, which is now insulin dependent. Status post evaluation per endocrinology. Continue diabetic management and insulin regimen as above. See discharge med/rec. Dyslipidemia. Continue statin. Continue Lopid. Discharge medications as above. Disposition as above. Dictated by... Joseph Baumann/adair TD: 12/08/2016 11:21 JOB #: [id number] Unit #: [id number] #: [id number] Patient: PAKO PILLAI DISCHARGE SUMMARY Page 1 of 1 X Braden Price MD DISCHARGE SUMMARY
--- NOTE | ~2016-11-25 | CR63 ---
[facility] A Service of [facility] RADIOLOGY TEXT RESULTS PATIENT: BIANCA PAULINO LOCATION: [facility] : 73 UNIT #: [id number] AGE: [address]: Jackeline Reilly MD SEX: F ORDER DR: [id number] [place] [id number] [place], [place] [address] [id number] I MR#: [id number] Acc #: [id number] NAME: BIANCA PAULINO : 1975 SEX: F STUDY DATE/TIME: 11/28/2016 12:22 UNIT: [facility] ROOM: [facility] STUDY DESCRIPTION: CR Chest 2 View Attending Physician: Jackeline Reilly M.D. Ordering Physician: Juan Antonio Presley M.D. Primary Care Physician: Marcos Mcmahon M.D. MEDICAL IMAGING REPORT This report is preliminary unless electronic signature is present EXAM Chest, 2 views. DATE OF EXAM 11/28/2016, 1222 hours. CLINICAL HISTORY 41-year-old woman complaining of 2-day history of shortness of air, cough and chest congestion with some chest pain with coughing. COMPARISON 11/25/2016 FINDINGS Upright PA and lateral views of the chest demonstrates slightly lower lung volumes. Allowing for this the cardiac, hilar and mediastinal contours are stable. Bilateral airspace changes have improved but not resolved. There is no pleural effusion or pneumothorax. IMPRESSION Low lung volume films with improving bilateral airspace changes. No effusion. No pneumothorax. Dictated by... La Santoyo M.D. THIS IS AN ELECTRONICALLY VERIFIED REPORT La Santoyo M.D. at 11/28/2016 5:58 PM ROMEO/jeramy TD: 11/28/2016 15:13 JOB #: [id number] [facility] A Service of [facility] RADIOLOGY TEXT RESULTS PATIENT: BIANCA PAULINO LOCATION: [facility] : [birth year] UNIT #: [id number] AGE: [address]: Jackeline Reilly MD SEX: F ORDER DR: MEDICAL IMAGING REPORT Page 1 of 1 COPY
--- NOTE | ~2016-11-25 | EKG ---
PATIENT: BIANCA PAULINO UNIT #: [id number] Ventricular Rate: 89 BPM Atrial Rate: 89 BPM P-R Interval: 206 ms QRS Duration: 88 ms Q-T Interval: 348 ms QTC Calculation(Bezet): 423 ms P [place]: 60 degrees Calculated R [place]: 9 degrees Calculated T [place]: 104 degrees Diagnosis Line: Normal sinus rhythm Diagnosis Line: Inferior infarct (cited on or before 21-APR-2015) Diagnosis Line: Anterior infarct (cited on or before 10-FEB-2012) Diagnosis Line: T wave abnormality, consider lateral ischemia Diagnosis Line: * ACUTE [place] Diagnosis Line: Consider right ventricular involvement in acute Diagnosis Line: inferior infarct Diagnosis Line: Abnormal ECG Diagnosis Line: When compared with ECG of 25-NOV-2016 18:41, Diagnosis Line: (unconfirmed) Diagnosis Line: T wave inversion less evident in Anterior leads Diagnosis Line: Confirmed by FANG RICK MD ([id number]) on 11/30/2016 Diagnosis Line: 4:03:04 PM INTERPRETING MD: MERLINE FITZPATRICK
--- NOTE | ~2016-11-25 | EKG ---
PATIENT: TOMAS PAULINO UNIT #: [id number] Ventricular Rate: 91 BPM Atrial Rate: 91 BPM P-R Interval: 222 ms QRS Duration: 72 ms Q-T Interval: 338 ms QTC Calculation(Bezet): 415 ms P [place]: 57 degrees Calculated R [place]: -5 degrees Calculated T [place]: 111 degrees Diagnosis Line: Sinus rhythm with 1st degree A-V block Diagnosis Line: Inferior infarct (cited on or before 21-APR-2015) Diagnosis Line: T wave abnormality, consider lateral ischemia Diagnosis Line: Abnormal ECG Diagnosis Line: When compared with ECG of 04-DEC-2016 21:37, Diagnosis Line: (unconfirmed) Diagnosis Line: No significant change was found Diagnosis Line: Confirmed by LUCY CHAPMAN MD ([id number]) on Diagnosis Line: 12/05/2016 9:54:31 PM INTERPRETING MD: YVON
--- NOTE | ~2016-11-25 | EKG ---
PATIENT: BIANCA PAULINO UNIT #: [id number] Ventricular Rate: 109 BPM Atrial Rate: 109 BPM P-R Interval: 202 ms QRS Duration: 84 ms Q-T Interval: 304 ms QTC Calculation(Bezet): 409 ms P [place]: 57 degrees Calculated R [place]: 24 degrees Calculated T [place]: 128 degrees Diagnosis Line: Sinus tachycardia Diagnosis Line: Inferior infarct (cited on or before 21-APR-2015) Diagnosis Line: Cannot rule out Anterior infarct (cited on or Diagnosis Line: before 10-FEB-2012) Diagnosis Line: T wave abnormality, consider lateral ischemia Diagnosis Line: * ACUTE [place] Diagnosis Line: Abnormal ECG Diagnosis Line: When compared with ECG of 16-NOV-2016 01:45, Diagnosis Line: Nonspecific T wave abnormality, worse in Anterior Diagnosis Line: leads Diagnosis Line: Confirmed by FANG RICK MD ([id number]) on 11/30/2016 Diagnosis Line: 3:31:02 PM INTERPRETING MD: MERLINE FITZPATRICK
[~2016-11-25 18:34] MED LIST changes: +PERCOCET PO
[2016-11-25 19:14] LABS: BASOPHIL# 0.1 X10e3 (0-0.3); BASOPHIL% 0.9 % (0-2.5); DIFF IND NO; EOSINOPHIL# 0.2 X10e3 (0-0.7); EOSINOPHIL% 1.5 % (0.0-7.0); HEMATOCRIT 39.2 % (35.0-45.0); HEMOGLOBIN 12.3 gm/dL (12.0-16.0); LYMPHOCYTE# 2.9 X10e3 (1.0-3.5); LYMPHOCYTE% 23.2 % (17.0-45.0); MEAN CELL VOLUME 74.3 FL (83-96); MEAN CORPUSCULAR HEMOGLOBIN 23.4 PG (28-34); MEAN CORPUSCULAR HGB CONC 31.4 g/dL (30-36); MEAN PLATELET VOLUME 9.7 FL (6.5-11.5); MONOCYTE# 1.1 X10e3 (0-1.0); MONOCYTE% 8.8 % (3.0-12.0); NEUTROPHIL# 8.2 X10e3 (1.5-7.1); NEUTROPHIL% 65.6 % (40-75); PLATELET COUNT 329 X10e3 (140-420); RED BLOOD COUNT 5.27 X10e (3.90-5.30); RED CELL DISTRIBUTION WIDTH 19.9 % (11.0-15.5); WHITE BLOOD COUNT 12.6 X10e3 (4.0-10.5)
[2016-11-25 19:28] LABS: POC - CKMB 2.1 ng/mL (0.0-7.9); POC - TROPONIN 0.09 ng/mL (<=0.05)
[2016-11-25 19:30] LABS: ALBUMIN SERUM 3.5 g/dL (3.5-5.0); ALKALINE PHOSPHATASE 105 U/L (32-92); ALT (SGPT) 15 U/L (10-40); AST (SGOT) 23 U/L (10-42); BILIRUBIN, DIRECT <0.1 mg/dL (0.0-0.2); BILIRUBIN,INDIRECT 0.6 mg/dL (0.0-0.9); BILIRUBIN,TOTAL 0.7 mg/dL (0.2-2.0); BLOOD UREA NITROGEN 11 mg/dL (9-23); BUN/CREATININE RATIO 15.71; CALCIUM SERUM 8.9 mg/dL (8.4-10.2); CARBON DIOXIDE 26 mmol/L (22-31); CHLORIDE 99 mmol/L (100-111); CREATININE SERUM 0.7 mg/dL (0.6-1.4); GLOM FILT RATE Estimated 123.9 mL/min (>60); GLUCOSE FASTING 344 mg/dL (70-110); POTASSIUM 3.6 mmol/L (3.5-5.1); SODIUM 131 mmol/L (135-145)
[2016-11-25 19:31] LABS: INR 1.1; PROTHROMBIN TIME (PATIENT) 12.7 SECONDS (9.5-12.4)
[2016-11-25 19:39] LABS: PARTIAL THROMBOPLASTIN TIME 27.7 SECONDS (25.6-38.1)
[2016-11-25 21:53] LABS: POC - CKMB 2.3 ng/mL (0.0-7.9); POC - TROPONIN 0.09 ng/mL (<=0.05)
[2016-11-26] MEDS ORDERED: CLOPIDOGREL75 MG PO (16:58)
[2016-11-26] MEDS ORDERED: SYNTHROID25 MCG PO (17:03)
[2016-11-26] MEDS ORDERED: LASIX PO (17:04)
[2016-11-26] MEDS ORDERED: NITROGLYGERIN0.4 MG SL (17:05)
[2016-11-26] MEDS ORDERED: GLUCOTROL PO (17:06)
[2016-11-26] MEDS ORDERED: BUSPAR15 M1 PO (17:08)
[2016-11-26] MEDS ORDERED: ALDACTONE25 MG PO (17:09)
[2016-11-26] MEDS ORDERED: PERCOCET5/325 PO (17:09)
[2016-11-26 22:27] LABS: %MB 0.8 % (0.0-4.0); MB 2.2 ng/ml
[2016-11-27 06:07] LABS: HEMATOCRIT 37.1 % (35.0-45.0); HEMOGLOBIN 11.4 gm/dL (12.0-16.0); MEAN CELL VOLUME 74.1 FL (83-96); MEAN CORPUSCULAR HEMOGLOBIN 22.8 PG (28-34); MEAN CORPUSCULAR HGB CONC 30.7 g/dL (30-36); MEAN PLATELET VOLUME 9.6 FL (6.5-11.5); RED CELL DISTRIBUTION WIDTH 20.2 % (11.0-15.5); WHITE BLOOD COUNT 10.3 X10e3 (4.0-10.5)
[2016-11-27 07:15] LABS: CREATININE SERUM 0.6 mg/dL (0.6-1.4); GLOM FILT RATE Estimated 130.3 mL/min (>60); POTASSIUM 4.1 mmol/L (3.5-5.1)
[2016-11-27 07:34] LABS: %MB 0.6 % (0.0-4.0); MB 1.5 ng/ml
[2016-11-27 18:56] LABS: %MB 0.6 % (0.0-4.0); MB 1.7 ng/ml
[2016-11-27 23:24] LABS: %MB 0.6 % (0.0-4.0); MB 1.7 ng/ml
[2016-11-28 10:40] LABS: BUN/CREATININE RATIO 21.66; CALCIUM SERUM 8.7 mg/dL (8.4-10.2); CREATININE SERUM 0.6 mg/dL (0.6-1.4); GLOM FILT RATE Estimated 130.3 mL/min (>60); POTASSIUM 4.3 mmol/L (3.5-5.1)
[2016-11-30 02:41] LABS: %MB 0.7 % (0.0-4.0); MB 1.7 ng/ml
[2016-11-30 06:55] LABS: BUN/CREATININE RATIO 28.33; CALCIUM SERUM 9.2 mg/dL (8.4-10.2); CREATININE SERUM 0.6 mg/dL (0.6-1.4); GLOM FILT RATE Estimated 130.3 mL/min (>60); POTASSIUM 4.5 mmol/L (3.5-5.1)
[2016-12-01 08:21] LABS: HEMOGLOBIN 11.4 gm/dL (12.0-16.0); MEAN CELL VOLUME 74.2 FL (83-96); MEAN CORPUSCULAR HEMOGLOBIN 22.8 PG (28-34); MEAN CORPUSCULAR HGB CONC 30.8 g/dL (30-36); MEAN PLATELET VOLUME 9.5 FL (6.5-11.5); RED BLOOD COUNT 4.99 X10e (3.90-5.30); RED CELL DISTRIBUTION WIDTH 19.7 % (11.0-15.5); WHITE BLOOD COUNT 9.8 X10e3 (4.0-10.5)
[2016-12-01 08:42] LABS: PROTHROMBIN TIME (PATIENT) 10.6 SECONDS (9.6-11.5)
[2016-12-01 08:53] LABS: BUN/CREATININE RATIO 27.14; CALCIUM SERUM 9.2 mg/dL (8.4-10.2); CREATININE SERUM 0.7 mg/dL (0.6-1.4); GLOM FILT RATE Estimated 123.9 mL/min (>60); MAGNESIUM 1.9 mg/dL (1.6-3.0); POTASSIUM 4.1 mmol/L (3.5-5.1)
[2016-12-01 09:13] LABS: %MB 0.8 % (0.0-4.0)
[2016-12-02 08:58] LABS: HEMOGLOBIN 12.1 gm/dL (12.0-16.0); MEAN CELL VOLUME 74.2 FL (83-96); MEAN PLATELET VOLUME 9.9 FL (6.5-11.5); RED BLOOD COUNT 5.25 X10e (3.90-5.30); RED CELL DISTRIBUTION WIDTH 19.5 % (11.0-15.5); WHITE BLOOD COUNT 9.7 X10e3 (4.0-10.5)
[2016-12-02 09:23] LABS: BUN/CREATININE RATIO 17.14; CALCIUM SERUM 9.3 mg/dL (8.4-10.2); CREATININE SERUM 0.7 mg/dL (0.6-1.4); GLOM FILT RATE Estimated 123.9 mL/min (>60); POTASSIUM 4.7 mmol/L (3.5-5.1)
[2016-12-02 18:52] LABS: ANGIO %MB 0.7 % (0.0-4.0)
[2016-12-03 01:07] LABS: BASOPHIL# 0.1 X10e3 (0-0.3); BASOPHIL% 0.6 % (0-2.5); EOSINOPHIL# 0.2 X10e3 (0-0.7); EOSINOPHIL% 2.3 % (0.0-7.0); HEMATOCRIT 35.2 % (35.0-45.0); HEMOGLOBIN 10.8 gm/dL (12.0-16.0); LYMPHOCYTE# 1.5 X10e3 (1.0-3.5); MEAN CELL VOLUME 74.5 FL (83-96); MEAN CORPUSCULAR HEMOGLOBIN 22.8 PG (28-34); MEAN CORPUSCULAR HGB CONC 30.6 g/dL (30-36); MEAN PLATELET VOLUME 9.6 FL (6.5-11.5); MONOCYTE# 1.1 X10e3 (0-1.0); MONOCYTE% 10.7 % (3.0-12.0); NEUTROPHIL# 7.3 X10e3 (1.5-7.1); NEUTROPHIL% 71.4 % (40-75); PLATELET COUNT 263 X10e3 (140-420); RED BLOOD COUNT 4.72 X10e (3.90-5.30); RED CELL DISTRIBUTION WIDTH 19.6 % (11.0-15.5); WHITE BLOOD COUNT 10.2 X10e3 (4.0-10.5)
[2016-12-03 01:08] LABS: DIFF IND NO
[2016-12-03 01:26] LABS: BUN/CREATININE RATIO 17.5; CALCIUM SERUM 8.8 mg/dL (8.4-10.2); CREATININE SERUM 0.8 mg/dL (0.6-1.4); GLOM FILT RATE Estimated 105.5 mL/min (>60); POTASSIUM 4.5 mmol/L (3.5-5.1)
[2016-12-03 01:41] LABS: ANGIO MB 2.4 ng/ml
[2016-12-04 06:06] LABS: BUN/CREATININE RATIO 22.85; CREATININE SERUM 0.7 mg/dL (0.6-1.4); GLOM FILT RATE Estimated 123.9 mL/min (>60); POTASSIUM 3.9 mmol/L (3.5-5.1)
[2016-12-05 03:34] LABS: HEMATOCRIT 30.9 % (35.0-45.0); HEMOGLOBIN 9.6 gm/dL (12.0-16.0); MEAN CELL VOLUME 73.5 FL (83-96); MEAN CORPUSCULAR HEMOGLOBIN 22.9 PG (28-34); MEAN CORPUSCULAR HGB CONC 31.2 g/dL (30-36); MEAN PLATELET VOLUME 9.1 FL (6.5-11.5); RED BLOOD COUNT 4.2 X10e (3.90-5.30); RED CELL DISTRIBUTION WIDTH 19.2 % (11.0-15.5); WHITE BLOOD COUNT 9.9 X10e3 (4.0-10.5)
[2016-12-05 13:21] LABS: BODY FLUID SOURCE BRONCHIAL LAVAGE
[2016-12-05 13:22] LABS: BF TOTAL NUCLEATED CELL COUNT 154 CMM (0-100); BODY FLUID APPEARANCE CLEAR; BODY FLUID RBC <10000 CMM
[2016-12-06 07:45] LABS: BUN/CREATININE RATIO 18.57; CALCIUM SERUM 8.7 mg/dL (8.4-10.2); CREATININE SERUM 0.7 mg/dL (0.6-1.4); GLOM FILT RATE Estimated 123.9 mL/min (>60); POTASSIUM 4.2 mmol/L (3.5-5.1)
[2016-12-08 07:24] LABS: HEMATOCRIT 31.8 % (35.0-45.0); MEAN CELL VOLUME 73.4 FL (83-96); MEAN CORPUSCULAR HEMOGLOBIN 23.1 PG (28-34); MEAN CORPUSCULAR HGB CONC 31.4 g/dL (30-36); MEAN PLATELET VOLUME 9.4 FL (6.5-11.5); RED BLOOD COUNT 4.34 X10e (3.90-5.30); RED CELL DISTRIBUTION WIDTH 19.2 % (11.0-15.5); WHITE BLOOD COUNT 10.5 X10e3 (4.0-10.5)
[2016-12-08 08:11] LABS: BUN/CREATININE RATIO 18.88; CALCIUM SERUM 9.2 mg/dL (8.4-10.2); CREATININE SERUM 0.9 mg/dL (0.6-1.4); GLOM FILT RATE Estimated 91.5 mL/min (>60); POTASSIUM 4.3 mmol/L (3.5-5.1)
[2016-12-08] MEDS ORDERED: ATORVASTATIN CA80 MG PO (11:09)
[2016-12-08] MEDS ORDERED: OMNICEF300 MG PO (11:10)
[2016-12-08] MEDS ORDERED: LOPID600 MG PO (11:10)
[2016-12-08] MEDS ORDERED: NOVOLOG100 UNIT/1 SUBQ (11:11)
[2016-12-08] MEDS ORDERED: LEVEMIR100 UNITS/ SUBQ (11:11)
[2016-12-08] MEDS ORDERED: IMDUR-ER30 M2 PO (11:12)
[2016-12-08] MEDS ORDERED: EFFIENT10 MG PO (11:13)
[2016-12-08] MEDS ORDERED: SYMBICORT INH (11:13)
[2016-12-08] MEDS ORDERED: ALBUTEROL20 ml INH (11:14)
== END 2016-12-08 17:42 | disposition home health service (06) | DRG 246 ==
LOC: SED 18:34 → SEDOF 20:30 → C5B 20:30 → SEDOF 23:36 → C5B 23:36 → SED 11-26 00:20 → C5B 11-26 00:20 → SEDOF 11-26 00:20 → CEDOF 11-26 00:20 → SEDOF 11-26 00:20 → C5B 12-06 10:51
PROVIDERS: Emergency Medicine; Hospitalist; Internal Medicine; Internal Medicine Cardiovascular Disease; Nurse Practitioner; Physician Assistant Medical
PROC: B24BYZZ Ultrasonography of Heart with Aorta using Other Contrast (ICD-10-PCS; 2016-11-27)
PROC: 4A023N7 Measurement of Cardiac Sampling and Pressure, Left Heart, Percutaneous Approach (ICD-10-PCS; 2016-11-29)
PROC: B211YZZ Fluoroscopy of Multiple Coronary Arteries using Other Contrast (ICD-10-PCS; 2016-11-29)
PROC: B215YZZ Fluoroscopy of Left Heart using Other Contrast (ICD-10-PCS; 2016-11-29)
PROC: 027034Z Dilation of Coronary Artery, One Artery with Drug-eluting Intraluminal Device, Percutaneous Approach (ICD-10-PCS; 2016-12-02)
PROC: 0B9D8ZX Drainage of Right Middle Lung Lobe, Via Natural or Artificial Opening Endoscopic, Diagnostic (ICD-10-PCS; principal; 2016-12-05 11:00)
DX: I25.5 Ischemic cardiomyopathy (principal); J18.9 Pneumonia, unspecified organism; J96.21 Acute and chronic respiratory failure with hypoxia; I50.23 Acute on chronic systolic (congestive) heart failure; D68.9 Coagulation defect, unspecified; T82.897A Other specified complication of cardiac prosthetic devices, implants and grafts, initial encounter; I11.0 Hypertensive heart disease with heart failure; E11.65 Type 2 diabetes mellitus with hyperglycemia; I25.110 Atherosclerotic heart disease of native coronary artery with unstable angina pectoris; Z79.82 Long term (current) use of aspirin; Z79.84 Long term (current) use of oral hypoglycemic drugs; E03.9 Hypothyroidism, unspecified; E78.5 Hyperlipidemia, unspecified; Z91.14 Patient's other noncompliance with medication regimen; Y71.8 Miscellaneous cardiovascular devices associated with adverse incidents, not elsewhere classified
CPT/HCPCS: 71020; 71250; 80048; 80061; 80076; 82308; 82550; 82553; 82947; 83036; 83605; 83735; 83880; 84443; 84484; 85025; 85027; 85347; 85379; 85610; 85730; 87040; 87070; 87102; 87106; 87116; 87205; 87206; 87252; 87254; 87278; 88108; 88305; 88312; 89051; 93005; 93306; 94760; 96374; 96375; 99285; C1725; C1769; C1874; C1887; C1894; J0153; J0171; J0456; J0461; J0696; J1644; J1650; J1815; J2250; J2270; J2405; J2550; J3010

== ENCOUNTER → 2017-01-21 | Outpatient (CLI) | payer OTHER ==
[~2017-01-21] MED LIST changes: +ALBUTEROL20 ml INH; +ALDACTONE25 MG PO; +ATORVASTATIN CA80 MG PO; +BUSPAR15 M1 PO; +CLOPIDOGREL75 MG PO; +EFFIENT10 MG PO; +IMDUR-ER30 M2 PO; +LEVEMIR100 UNITS/ SUBQ; +LOPID600 MG PO; +NITROGLYGERIN0.4 MG SL; +NOVOLOG100 UNIT/1 SUBQ; +OMNICEF300 MG PO; +PERCOCET5/325 PO; +SYMBICORT INH; +SYNTHROID25 MCG PO
[2017-01-21 11:31] LABS: BUN/CREATININE RATIO 13.33; CALCIUM SERUM 8.9 mg/dL (8.4-10.2); CREATININE SERUM 0.6 mg/dL (0.6-1.4); GLOM FILT RATE Estimated 130.3 mL/min (>60); POTASSIUM 3.6 mmol/L (3.5-5.1)
== END | disposition home or self-care (01) ==
LOC: SLAB 10:50
PROVIDERS: Internal Medicine
DX: I25.5 Ischemic cardiomyopathy (principal)
CPT/HCPCS: 36415; 80048

== ENCOUNTER → 2017-03-27 | Outpatient (CLI) | payer OTHER ==
--- NOTE | ~2017-03-27 | EE ---
Unit #: [id number] #: [id number] Patient: BIANCA PAULINO [id number] [address] [address] [id number] O MR#: [id number] NAME: BIANCA PAULINO : 1975 SEX: F STUDY DATE/TIME: 03/27/2017 UNIT: CEEG ROOM: STUDY DESCRIPTION: EEG Attending Physician: Suzette Chamberlain M.D. Referring Physician: Suzette Chamberlain M.D. Primary Care Physician: Marcos Mcmahon M.D. NEURODIAGNOSTICS REPORT EXAM EEG REASON FOR THE STUDY Seizures. EEG DESCRIPTION This is an outpatient, digitally recorded multi-montage adult EEG with leads placed according to the International 10-20 System. Hyperventilation was not done but photic stimulation was attempted. With the patient fully aroused there is 10-11 Hz posterior dominant alpha rhythm which is symmetric and attenuates with eyes opening. The patient did become drowsy and later on stage 2 sleep was seen. No clearcut interictal discharges or clinical events were seen. Hyperventilation was not done. Photic stimulation was attempted in intermittent stepwise pattern up to the flash frequency of 30 Hz but I did not see any driving, asymmetry or paroxysmal activity. No clinical events were seen. IMPRESSION This is essentially a normal adult awake and asleep EEG. An EEG like this does not rule out epilepsy. Clinical correlation is recommended. Dictated by... Joseph Barrios/letitia TD: 03/30/2017 12:15 JOB #: [id number] Unit #: [id number] #: [id number] Patient: BIANCA PAULINO NEURODIAGNOSTICS REPORT Page 1 of 1 X Vianey Lanza MD NEURODIAGNOSTICS REPORT
== END | disposition home or self-care (01) ==
LOC: CEEG 08:10
DX: R56.9 Unspecified convulsions (principal)
CPT/HCPCS: 95816